=== PATIENT | male | born 1975 | race Caucasian/White ===

== ENCOUNTER 2016-12-23 17:41 | Emergency (ER) | payer BC ==
--- NOTE | 2016-12-23 18:26 | UC ---
Throat Pain/Nasal Cory HPI - HPI Summary HPI Summary: one week of upper respiratory symptoms, with onset of cold sores yesterday. He has had these in the past, and generally resolve with use of Abreva. Increasing lower lip crusting with a few pustules associated in the last day, with increased swelling and pain. Continues to have sore throat and sinus pressure, non-productive cough. - History of Current Complaint Chief Complaint: UCGeneralIllness Stated Complaint: LOWER LIP COMPLAINT Time Seen by Provider: 12/23/16 18:07 Hx Obtained From: Patient Onset/Duration: Gradual Onset, Lasting Days - 2 Severity: Moderate Cough: Nonproductive Associated Signs & Symptoms: Positive: Dysphagia, Sinus Discomfort, Rash - Epiglottits Risk Factors Epiglottis Risk Factors: Negative - Allergies/Home Medications Allergies/Adverse Reactions: Allergies Allergy/AdvReac Type Severity Reaction Status Date / Time No Known Allergies Allergy Verified 12/23/16 17:53 PMH/Surg Hx/FS Hx/Imm Hx Previously Healthy: Yes Endocrine History Of: Denies: Diabetes, Thyroid Disease, Hyperthyroidism, Hypothyroidism, Dyslipidemia Cardiovascular History Of: Denies: Cardiac Disorders, Hypertension, Pacemaker/ICD, Myocardial Infarction , Congestive Heart Failure, Atrial Fibrillation, Deep Vein Thrombosis, Bleeding Disorders Respiratory History Of: Denies: COPD, Asthma, Bronchitis, Pneumonia, Pulmonary Embolism GI/ History Of: Denies: Gastroesophageal Reflux, Ulcer, Gastrointestinal Bleed, Gall Bladder Disease, Kidney Stones, Diverticulitis, Renal Disease, Urosepsis Neurological History Of: Denies: TIA, CVA, Dementia, Seizures, Migraine Psychological History Of: Denies: Anxiety, Depression, Bipolar Disorder, Schizophrenia, Post Traumatic Stress Disorder Cancer History Of: Denies: Lung Cancer, Colorectal Cancer, Breast Cancer, Prostate Cancer, Cervical Cancer - Surgical History Surgical History: Yes Surgery Procedure, Year, and Place: [facility] - Family History Known Family History: Positive: Cardiac Disease - father had heart transplant due to ischemic cardiomyopathy;[place] age 48 - Social History Occupation: Employed Full-time - contractor Lives: With Family Alcohol Use: Weekly Substance Use Type: None Smoking Status (MU): Former Smoker - Immunization History Most Recent Influenza Vaccination: None Most Recent Tetanus Shot: UTD Most Recent Pneumonia Vaccination: None Review of Systems Constitutional: Negative Skin: Rash Eyes: Negative ENT: Sore Throat Respiratory: Cough Cardiovascular: Negative Gastrointestinal: Negative Genitourinary: Negative Motor: Negative Neurovascular: Negative Musculoskeletal: Negative Neurological: Negative Psychological: Negative All Other Systems Reviewed And Are Negative: Yes Physical Exam Triage Information Reviewed: Yes Appearance: Ill-Appearing - looks mildly unwell Vital Signs: Initial Vital Signs Temp 99 F 12/23/16 17:54 Pulse 67 12/23/16 17:54 Resp 18 12/23/16 17:54 BP 123/78 12/23/16 17:54 Pulse Ox 100 12/23/16 17:54 Vital Signs Reviewed: Yes Eyes: Positive: Conjunctiva Clear ENT: Positive: Pharyngeal erythema, TMs normal, Tonsillar swelling, Other: - healthy gums, no oral ulcers Neck: Positive: Supple, Nontender, No Lymphadenopathy Respiratory: Positive: Lungs clear, Normal breath sounds Cardiovascular: Positive: RRR, No Murmur Musculoskeletal Exam: Normal Neurological: Positive: Alert Skin: Positive: Other - right lower lip with swelling, crusting. 2 x 2 mm pustules under the right lip. Throat Pain/Nasal Course/Dx - Course Course Of Treatment: cephalexin for impetigo, valacyclovir for herpetic component. - Differential Dx/Diagnosis Provider Diagnoses: impetigo; herpes labialis; URI Discharge - Discharge Plan Condition: Stable Disposition: HOME Prescriptions: Cephalexin CAP* [Keflex 500 CAP*] 500 mg PO QID #28 cap ValACYclovir (*) [Valtrex 1 GM(*)] 2 tab PO BID #4 tab Patient Education Materials: Oral Herpes Simplex Virus Infections (ED), Impetigo (ED) Referrals: Non Staff,Doctor [Medical Doctor] - Additional Instructions: discussed, you have a secondary bacterial infection on top of the cold sores. The cephalexin will treat this as well as the sinus symptoms. Use ibuprofen 600mg every 6 hours as needed for pain. After lightly cleansing, apply vaseline or abreva to your lower lip.
[2016-12-23 18:34] VITALS: BP 118/72
== END 2016-12-23 18:35 | disposition home or self-care (01) ==
LOC: UCCORT 17:41
DX: B00.1 Herpesviral vesicular dermatitis (principal); L01.00 Impetigo, unspecified; J06.9 Acute upper respiratory infection, unspecified; Z87.891 Personal history of nicotine dependence
CPT/HCPCS: 99212; G0463

== ENCOUNTER 2017-05-14 14:55 | Emergency (ER) | payer BC ==
[2017-05-14 16:11] VITALS: BP 121/70
--- NOTE | 2017-05-14 16:29 | UC ---
Hand/Wrist HPI - HPI Summary HPI Summary: patient hit hand on a nail 1 week ago, re-injured it last night and it is swollen and painful - History Of Current Complaint Chief Complaint: UCUpperExtremity Stated Complaint: LEFT HAND COMPLAINT Time Seen by Provider: 05/14/17 16:12 Hx Obtained From: Patient Mechanism Of Injury: blunt trauma Onset/Duration: Sudden Onset, Lasting Days Severity Initially: Moderate Severity Currently: Moderate Character Of Pain: Dull, Aching Aggravating Factor(s): Movement Alleviating: Nothing Associated Signs And Symptoms: Positive: Swelling - Allergies/Home Medications Allergies/Adverse Reactions: Allergies Allergy/AdvReac Type Severity Reaction Status Date / Time No Known Allergies Allergy Verified 05/14/17 16:06 PMH/Surg Hx/FS Hx/Imm Hx Previously Healthy: Yes - Surgical History Surgical History: Yes Surgery Procedure, Year, and Place: [facility] - Family History Known Family History: Positive: None, Cardiac Disease - father had heart transplant due to ischemic cardiomyopathy;[place] age 48 - Social History Alcohol Use: Weekly Substance Use Type: None Smoking Status (MU): Former Smoker - Immunization History Most Recent Influenza Vaccination: None Most Recent Tetanus Shot: UTD Most Recent Pneumonia Vaccination: None Review of Systems Constitutional: Negative Skin: Negative Eyes: Negative ENT: Negative Respiratory: Negative Cardiovascular: Negative Gastrointestinal: Negative Genitourinary: Negative Motor: Negative Neurovascular: Negative Musculoskeletal: Arthralgia, Decreased ROM, Edema, Myalgia Neurological: Negative Psychological: Negative All Other Systems Reviewed And Are Negative: Yes Physical Exam Triage Information Reviewed: Yes Appearance: Well-Appearing, Well-Nourished, Pain Distress Vital Signs: Initial Vital Signs Temp 98.5 F 05/14/17 16:06 Pulse 71 05/14/17 16:06 Resp 16 05/14/17 16:06 BP 121/70 05/14/17 16:06 Pulse Ox 100 05/14/17 16:06 Vital Signs Reviewed: Yes Eye Exam: Normal Eyes: Positive: Conjunctiva Clear ENT Exam: Normal ENT: Positive: Hearing grossly normal, Pharynx normal, TMs normal Dental Exam: Normal Neck exam: Normal Neck: Positive: Supple, Nontender, No Lymphadenopathy Respiratory Exam: Normal Respiratory: Positive: Chest non-tender, Lungs clear, Normal breath sounds Cardiovascular Exam: Normal Abdominal Exam: Normal Bowel Sounds: Positive: Present Musculoskeletal: Positive: Strength Intact, ROM Limited @, Edema @ - across back of hand and knuckles, fingers as well Neurological Exam: Normal Neurological: Positive: Alert, Muscle Tone Normal Psychological Exam: Normal Skin Exam: Normal Hand/Wrist Course/Dx - Course Course Of Treatment: hx obtained, exam performed ,meds reviewed, xray obtained, neg for fracture, pal and spint applied - Differential Dx/Diagnosis Differential Diagnosis/HQI/PQRI: Contusion, Fracture, Sprain, Strain Provider Diagnoses: hand contusion Discharge - Discharge Plan Condition: Stable Disposition: HOME Patient Education Materials: Contusion in Adults (ED) Additional Instructions: 1. rest hand 2. use compression wrap for swelling reduction, elevated at rest 3. Ibuprofen for pain and swelling 4. follow up if not experiencing improvement with rest. with the orthopedic listed
--- NOTE | 2017-05-14 16:30 | RAD ---
INDICATION: Swelling and pain over the fifth metacarpal phalangeal joint COMPARISON: None. TECHNIQUE: 4 views of the left hand were obtained. FINDINGS: The adequately corticated bones are in normal alignment. No significant focal osseous abnormality or fracture is seen. Joint spaces appear maintained. IMPRESSION: Normal left hand radiograph. If the patient's symptoms persist, follow-up imaging is recommended.
== END 2017-05-14 17:14 | disposition home or self-care (01) ==
LOC: UCCORT 14:55
DX: S60.222A Contusion of left hand, initial encounter (principal); W22.8XXA Striking against or struck by other objects, initial encounter; Y93.9 Activity, unspecified; Y92.9 Unspecified place or not applicable; Y99.9 Unspecified external cause status; Z87.891 Personal history of nicotine dependence
CPT/HCPCS: 99211; G0463

== ENCOUNTER 2018-05-10 17:34 | Emergency (ER) | payer BC ==
[2018-05-10 17:57] VITALS: BP 127/81
--- NOTE | 2018-05-10 18:30 | UC ---
Skin Complaint HPI - HPI Summary HPI Summary: Patient presents with right hand swelling and mild right axillary swelling. After being stung by a bee at approximate 5:30 this afternoon. Patient states his hand first became swollen. He then developed a lump in his right axilla. Patient states he took 50 mg of Benadryl and a lump in his axilla is nearly resolved. Patient states this happened once before when he was stung. Patient denies any facial swelling. No tongue swelling. No difficulty swallowing. No shortness of breath or wheezing. Patient states last time he was given a shot of steroids that he didn't like that seemed to help. Patient without previous history of anaphylaxis. Patient is healthy on no medications. His tetanus is up-to-date. - History of Current Complaint Chief Complaint: UCSkin Time Seen by Provider: 05/10/18 17:56 Stated Complaint: RIGHT HAND COMPLAINT Hx Obtained From: Patient Onset/Duration: Sudden Onset Skin Exposure Onset/Duration: Hours Ago Onset Severity: Moderate Current Severity: Mild Pain Intensity: 2 Pain Scale Used: 0-10 Numeric Location: Discrete - Allergy/Home Medications Allergies/Adverse Reactions: Allergies Allergy/AdvReac Type Severity Reaction Status Date / Time No Known Allergies Allergy Verified 05/10/18 17:58 Home Medications: Home Medications buPROPion TAB* [Wellbutrin TAB*] 75 mg PO BID 05/10/18 [History Confirmed ] diPHENhydraMINE PO* [Benadryl PO 50 MG CAP*] 50 mg PO Q6H PRN 05/10/18 [History Confirmed 05/10/18] Review of Systems Constitutional: Negative Skin: Other All Other Systems Reviewed And Are Negative: Yes PMH/Surg Hx/FS Hx/Imm Hx Previously Healthy: Yes - Surgical History Surgical History: Yes Surgery Procedure, Year, and Place: [facility] - Family History Known Family History: Positive: Cardiac Disease - father had heart transplant due to ischemic cardiomyopathy;[place] age 48 - Social History Occupation: Employed Full-time Lives: With Family Alcohol Use: Weekly Substance Use Type: None Smoking Status (MU): Former Smoker - Immunization History Most Recent Influenza Vaccination: None Most Recent Tetanus Shot: UTD Most Recent Pneumonia Vaccination: None Physical Exam - Summary Physical Exam Summary: Vital Signs Reviewed: Yes A+Ox3, no distress Eyes: Conjunctiva Clear ENT: Hearing grossly normal neck: supple Respiratory: Positive: No respiratory distress, No accessory muscle use CTA throughout no w/r Cardiovascular: skin color reflect adequate perfusion RRR nl s1, s2 2+ radial, 2 + ulnar CBT <2 sec Musculoskeletal Exam: PEREZ x 4 without difficulty + abduct, extend right shoulder + flex/ext elbow + pronate/supinate + flex/ext wrist Neurological: Positive: Alert, ambulatory without difficulty Psychological: Positive: Normal Response To Family Skin: Positive: no rash, no ecchymosis patient with edema and swelling to right hand. The dorsal surface. Patient without any hives. Patient with very slight palpable lymphadenopathy in right axilla. Patient states is markedly improvement was. Patient without any hives or other skin findings. Triage Information Reviewed: Yes Vital Signs: Initial Vital Signs Temp 98.9 F 05/10/18 17:52 Pulse 71 05/10/18 17:52 Resp 16 05/10/18 17:52 BP 127/81 05/10/18 17:52 Pulse Ox 100 05/10/18 17:52 Course/Dx - Course Course Of Treatment: Patient presents to urgent care approximately 3 hours after being stung by a bee. Patient developed swelling of his hand as well as axilla. Exam markedly improved after taking Benadryl. Patient with some edema to the dorsum of his hand. Patient without any hives or any other systemic symptoms. Discussed with patient regarding reactions. We'll give patient prednisone for 5 days. We'll give patient Pepcid twice a day. Recommend Benadryl every 6-8 as needed. Discussed with patient precautions regarding sedation. Patient does work in construction so give caution. Patient also can up her prescription for an EpiPen. Patient advised to avoid excess heat, use cool packs, and avoid NSAIDs for the next 2-3 days. Patient states understanding comfortable agreement with plan. Patient refuses EpiPen he must go to emergency department. Patient advised return precautions. - Diagnoses Provider Diagnoses: bee sting Discharge - Sign-Out/Discharge Documenting (check all that apply): Patient Departure - Discharge Plan Condition: Stable Disposition: HOME Prescriptions: EPINEPHrine [Epipen 2-Pollo] 0.3 mg IJ ONCE #1 auto.injct Famotidine TAB* [Pepcid 20 MG TAB*] 20 mg PO DAILY #14 tab predniSONE TAB* [Deltasone TAB*] 50 mg PO DAILY #5 tab Patient Education Materials: Insect Bite or Sting (ED) Referrals: Roseanne Jaramillo MD [Primary Care Provider] - Additional Instructions: - Take prednisone exactly as prescribed until gone - starting today - Okay to take Benadryl (1-2 tablets) every 6 hours as needed. This medication may cause drowsiness - do NOT drive, operate machinery or drink alcohol while taking Benadryl -Take pepcid as prescribed - 2 times daily for 7 days -Avoid getting over heated (hot showers, hot tubs, exercise) for at least 48 hours - Try to avoid aspirin, NSAIDs (Motrin, Aleve, Naprosyn) for 2-3 days - Okay to apply cool compresses to the area of injury - elevate your hand to help with swelling and discomfort - If you develop facial swelling, difficulty swallowing, difficulty breathing or any other concerns it is recommend you use go immediately to the emergency department for further evaluation - if you use your epi pen - you must go to the emergency department -Contact your doctor or return here with questions or concerns - Billing Disposition and Condition Condition: STABLE Disposition: Home
== END 2018-05-10 18:48 | disposition home or self-care (01) ==
LOC: UCCORT 17:34
DX: T63.441A Toxic effect of venom of bees, accidental (unintentional), initial encounter (principal); M79.89 Other specified soft tissue disorders; Y92.9 Unspecified place or not applicable
CPT/HCPCS: 99212; G0463